=== PATIENT | female | born 1980 | race Two or more races ===

== ENCOUNTER 2018-06-11 22:43 | Emergency (ER) | payer OTHER ==
[~2018-06-11] VITALS: Ht 160 cm; Wt 64.0 kg
[2018-06-11 23:04] VITALS: BP 112/67
--- NOTE | 2018-06-11 23:04 | NUR ---
ED Nurse Note: pt came to ed c/o right hand injury at work since . per pt she hit her hand on a shelf at work. pt shows no acute distress. right hand is slightly swollen.
--- NOTE | 2018-06-11 23:21 | Emergency Room Report ---
History of Present Illness General Chief Complaint: Upper Extremity Injury Source: Patient Present Illness HPI This is a 38-year-old female who is right-hand dominant. She presents with chief complaint of right hand injury. 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 This occurred at work. Now is bruising and tender. Worse with movement. Worse with palpation. Pain is 8 out of 10. No other injury. Denies any bleeding. Allergies: Coded Allergies: PENICILLINS (Verified Allergy, Unknown, 06/11/18) Uncoded Allergies: PENICILLAN (Allergy, Mild, 06/11/18) rash Patient History Past Medical History: see triage record, old chart reviewed Past Surgical History: none Pertinent Family History: none Social History: Denies: smoking Last Menstrual Period: 05-20-2018 Now: No Immunizations: other Reviewed Nursing Documentation: PMH: Agreed; PSxH: Agreed Nursing Documentation-PMH Past Medical History: No Stated History Review of Systems Eye: Denies: eye pain, blurred vision ENT: Denies: ear pain, nose congestion, throat swelling Respiratory: Denies: cough, shortness of breath Cardiovascular: Denies: chest pain, palpitations Gastrointestinal: Denies: abdominal pain, diarrhea, nausea, vomiting Musculoskeletal: Reports: muscle pain; Denies: back pain, joint pain Skin: Denies: rash Neurological: Denies: headache, numbness Endocrine: Denies: increased thirst, increased urine Hematologic/Lymphatic: Denies: easy bruising All Other Systems: negative except mentioned in HPI Physical Exam Vital Signs Date Time Temp Pulse Resp B/P (MAP) Pulse Ox O2 Delivery O2 Flow Rate FiO2 06/11/18 22:53 98.1 63 18 112/67 98 Room Air vitals normal Sp02 EP Interpretation: reviewed, normal General Appearance: well appearing, no apparent distress, alert Head: normocephalic, atraumatic Eyes: bilateral eye PERRL, bilateral eye EOMI ENT: hearing grossly normal, normal pharynx Neck: full range of motion, supple, no meningismus Respiratory: chest non-tender, lungs clear, normal breath sounds Cardiovascular #1: regular rate, rhythm, no murmur Gastrointestinal: normal bowel sounds, non tender, no mass, no organomegaly, no bruit, non-distended Musculoskeletal: back normal, gait/station normal, normal range of motion, other - Dorsum of right hand with ecchymosis and tenderness. No crepitance. Full range of motion the wrist and MCP joints. Psychiatric: mood/affect normal Skin: warm/dry Medical Decision Making Diagnostic Impression: Primary Impression: Contusion of right hand, initial encounter ER Course Patient with soft tissue injury from trauma. No fracture dislocation. Other X-Ray Diagnostic Results Other X-Ray Diagnostic Results : X-Ray ordered: Rt hand xrays # of Views/Limited Vs Complete: 3 View Indication: Pain EP Interpretation: Yes Interpretation: no dislocation, no soft tissue swelling, no fractures Impression: No acute disease Electronically Signed by: Yan Anna MD Last Vital Signs Date Time Temp Pulse Resp B/P (MAP) Pulse Ox O2 Delivery O2 Flow Rate FiO2 06/11/18 23:04 98.1 68 18 112/67 98 Room Air Status: improved Disposition: HOME, SELF-CARE Condition: Stable Scripts Ibuprofen* (MOTRIN*) 600 Mg Tablet 600 MG ORAL THREE TIMES A DAY, #30 TAB 0 Refills Prov: Yan Anna MD 06/11/18 Additional Instructions: Follow-up with your doctor in 7 days. Return if worse. Yan Anna MD Jun 11, 2018 23:21
[2018-06-11] MEDS ORDERED: IBUPROFEN600 MG ORAL (23:47)
[2018-06-11 23:55] VITALS: BP 112/67
--- NOTE | 2018-06-11 23:55 | NUR ---
ER DISCHARGE NOTE: Patient is cleared to be discharged per ERMD, pt is aox4, on room air, with stable vital signs. pt was given dc and prescription instructions, pt was able to verbalize understanding, pt id band removed. pt is able to ambulate with steady gait. pt took all belongings.
--- NOTE | 2018-06-12 00:45 | Diagnostic Imaging Report ---
EXAM: XR Right Hand Complete, 3 or More Views CLINICAL HISTORY: TRAUMA TECHNIQUE: Frontal, lateral and oblique views of the right hand. COMPARISON: No relevant prior studies available. FINDINGS: There are some lucencies seen which appear to represent artifact/summation, example fourth and fifth digits on the oblique view. No acute fracture or dislocation is identified. Suspected soft tissue swelling. No radiodense foreign body. IMPRESSION: No acute fracture or dislocation
== END 2018-06-11 23:54 | disposition home or self-care (01) ==
LOC: EMR 23:15
DX: S60.221A Contusion of right hand, initial encounter (principal); W22.8XXA Striking against or struck by other objects, initial encounter; Y92.9 Unspecified place or not applicable; Z88.0 Allergy status to penicillin
CPT/HCPCS: 99283